=== PATIENT | male | born 1985 | race Caucasian/White ===

== ENCOUNTER 2023-05-26 16:08 | Emergency (ER) | payer OTHER, SELFPAY ==
[2023-05-26] VITALS (9 sets, daily range): BP systolic 130–149; BP diastolic 80–86; PULSE 64; RESP 18; TEMP 36.5; O2SAT 97–100
--- NOTE | ~2023-05-26 | CT_ITS ---
EXAMINATION: CT brain wo con, CT IAC/mastoids BI wo con DATE: 05/26/2023 17:51 INDICATION: Head injury TECHNIQUE: 1. Computed tomography (CT) of the head was performed without intravenous contrast. Sagittal and patrick nal reconstructions were performed. The mA was adjusted according to patient size. Iterative reconstr uction technique was employed. The dose-length product was 605.33 mGy-cm. 2. CT of the bilateral temporal bones/internal auditory canals/mastoids was performed without intrave nous contrast. Sagittal and coronal reconstructions were performed. Automated exposure control and it erative reconstruction technique were employed. The dose-length product was 348.5 mGy-cm. COMPARISON: None FINDINGS: No fracture. No acute intracranial hemorrhage, acute infarction or abnormal extra axial fluid collect ion. Ventricles are normal and symmetric. No mass/mass effect. The orbits, paranasal sinuses and mast oid air cells are normal. There is minimal amount of increased density along the reportedly ruptured right tympanic membrane likely representing hemorrhage related to the recent trauma. Normal symmetric appearance of the bilateral ossicular chains. Middle ear cavities remain clear. The bilateral cochle a and semicircular canals appear normal. IMPRESSION: 1. Minimal density likely representing hemorrhage along the reportedly ruptured right tympanic membra ne. No fracture or evident disruption of the ossicular chain. 2. Normal brain. No acute intracranial process. Reviewed, dictated and finalized at location A. IMPRESSION: 1. Minimal density likely representing hemorrhage along the reportedly ruptured right tympanic membrane. No fracture or evident disruption of the ossicular ch ain. 2. Normal brain. No acute intracranial process.
--- NOTE | ~2023-05-26 | XR_ITS ---
EXAMINATION: XR chest 2V DATE: 05/26/2023 17:37 INDICATION: Syncope TECHNIQUE: PA and lateral views of the chest were obtained. COMPARISON: None FINDINGS: The lungs are clear with no focal airspace opacities, pulmonary edema, pleural effusion or pneumothor ax. The cardiomediastinal silhouette is normal. Mild thoracic spondylosis with chronic appearing mild anterior wedging of a couple mid thoracic vertebral bodies. IMPRESSION: 1. No acute cardiopulmonary disease. Reviewed, dictated and finalized at location A.
--- NOTE | 2023-05-26 16:22 | PC.NURSE ---
Pt states around 1515 today while [place], he tripped and fell and a stick landed into his right ear. States that he has not been able to hear out of the ear since. Denies any bleeding or discharge from the ear.
--- NOTE | 2023-05-26 17:26 | ECG_ITS ---
Measurements Intervals [place] Rate: 47 P: 60 MS: 151 QRS: 83 QRSD: 83 T: 46 QT: 410 QTc: 365 Interpretive Statements SINUS BRADYCARDIA BASELINE WANDER- II, III, AVR, AVL, AVF, V3-V6 ABNORMAL ECG NO PREVIOUS ECG AVAILABLE FOR COMPARISON Electronically Signed On 05-26-2023 18:53:21 CDT by Keagan Bains D.O.
--- NOTE | 2023-05-26 17:37 | ED.EAR ---
HPI - Ear Problem General Chief complaint: Ear Stated complaint: decreased hearing and pain to right ear Time Seen by Provider: 05/26/23 17:16 Source: patient Mode of arrival: EMS Limitations: no limitations History of Present Illness HPI Narrative: This is a 37-year-old male that presents to the emergency department after a fall with an injury to the right ear. Reports [place] and [place]. He had a stick punctured his right ear. He was able to remove this stick. After he noticed some bloody discharge, pain, decreased hearing. He then started to feel tingling in his hands and feet and felt very lightheaded and nauseous. He passed out. He does report he lost consciousness. He denies any current visual changes, vomiting, or numbness. MD Complaint: ear pain and ear discharge Location: right ear Duration: constant Severity: moderate Relieving factors: nothing Context: Reports trauma Discharge from ear: Reports yes - bloody Associated symptoms ear: decreased hearing, headache and other (lightheadedness) Treatment prior to arrival: other (patient pulled stick out of ear) Related Data Allergies Allergy/AdvReac Type Severity Reaction Status Date / Time No Known Allergies Allergy Unverified 05/26/23 16:07 Review of Systems Review of Systems: CONSTITUTIONAL: Denies fever EYES: Denies visual changes CARDIOVASCULAR: Denies chest pain RESPIRATORY: Denies dyspnea. GASTROINTESTINAL: Reports nausea. Denies vomiting NEUROLOGIC: Reports headache. Denies numbness, or weakness. All systems reviewed & are unremarkable except as noted in HPI and below PMFSH Past Medical History Medical History (Updated 05/26/23 @ 18:51 by Shannan Chacko PA-C) No active medical problems Social History Social History Smoking status: Never smoker Alcohol intake: current Exam Narrative: GENERAL: Well-appearing, well-nourished, and in no acute distress. HEAD: Normocephalic, atraumatic. EYES: PERRLA and EOMI. ENT: Nares clear, no rhinorrhea or epistaxis. Mucous membranes moist. Oropharynx without tonsillar hypertrophy exudate or other lesions. Left TM pearly leal, non-bulging. Right TM with moderate size puncture. Small amount of bloody discharge in the right external auditory canal NECK: Supple. No adenopathy or masses. CHEST: No respiratory distress. HEART: Regular rate EXTREMITIES: Normal range of motion. No edema. SKIN: Warm, dry, no rash. NEURO: No focal deficits. Alert and oriented x3. Cranial nerves II through XII grossly intact. Normal finger-nose PSYCH: Normal mood and affect Course Course Emergency Course: Patient updated on work-up and agrees with plan of care Vital Signs Vital signs: Vital Signs Temperature 97.7 F 05/26/23 16:09 Pulse Rate 64 05/26/23 16:09 Respiratory Rate 18 05/26/23 16:09 Blood Pressure 141/80 H 05/26/23 16:09 Pulse Oximetry 98 05/26/23 16:09 Oxygen Delivery Room Air 05/26/23 16:09 Temperature 97.7 F 05/26/23 16:09 Pulse Rate 64 05/26/23 16:09 Respiratory Rate 18 05/26/23 16:09 Blood Pressure 149/85 H 05/26/23 18:46 Pulse Oximetry 97 05/26/23 18:46 Oxygen Delivery Room Air 05/26/23 16:09 Medical Decision Making MDM Narrative Medical decision making narrative: Patient presents to the emergency department after an injury to the right ear. Patient had foreign body in the right ear which he removed himself. After he noted bleeding and pain to the ear as well as decreased hearing. He is noted to have a moderate size defect in the right tympanic membrane. There are no obvious retained foreign bodies. He reported a syncopal episode following removing the stick from his ear. He is neurologically intact. His vitals are stable. No concerning changes on his EKG. CBC and metabolic panel without concerning findings. Chest x-ray without acute cardiopulmonary abnormality. CT scan of the brain and internal auditory rian
[2023-05-26] MEDS: SODIUM CHLORIDE 0.9% IV 500 ML 999 ML IV CONT (18:07)
[2023-05-26] MEDS: ACETAMINOPHEN 500 MG TABLET 1000 MG PO (18:08)
[2023-05-26] MEDS: ONDANSETRON INJ 4 MG/2 ML VIAL IV PUSH (18:09)
[2023-05-26 18:18] LABS: Basophils Absolute Auto 0.1 K/mm3 (0.0-0.1); Basophils Percent Auto 0.7 % (0.2-1.2); Eosinophils Absolute Auto 0.2 K/mm3 (0-0.3); Eosinophils Percent Auto 2.3 % (0-4.4); Hematocrit 42.9 % (42.0-52.0); Hemoglobin 14.5 g/dL (14.0-18.0); Immature Granulocyte Absolute 0.03 K/mm3 (0.00-0.031); Immature Granulocyte Percent A 0.3 % (0-0.5); Lymphocytes Absolute Auto 1.51 K/mm3 (0.9-3.2); Lymphocytes Percent Auto 16.4 % (18.3-44.2); Mean Corpuscular HGB Conc 33.8 g/dl (32-36); Mean Corpuscular Volume 88.6 fl (80-100); Mean Platelet Volume 10.5 fl (7.4-10.4); Monocytes Absolute Auto 0.8 K/mm3 (0.1-0.6); Monocytes Percent Auto 8.3 % (2.6-8.5); Neutrophils Absolute Auto 6.6 K/mm3 (1.3-6.7); Platelet Count Result 214 k/mm3 (150-375); Red Blood Count 4.84 M/mm3 (4.6-6.20); Red Cell Distribution Width 12.3 % (11.5-14.5); White Blood Count 9.2 K/mm3 (4.5-10.0)
[2023-05-26 18:37] LABS: Alanine Aminotransferase 23 U/L (6-50); Albumin Level 4.3 g/dL (3.5-5.1); Alkaline Phosphatase 74 U/L (38-126); Anion Gap 7 mmol/L (8-16); Aspartate Amino Transferase 35 U/L (17-59); Bilirubin,Total 0.4 mg/dL (0.2-1.3); Blood Urea Nitrogen 20 mg/dL (9-20); Calcium 9.1 mg/dL (8.4-10.2); Carbon Dioxide 27 mmol/L (22-30); Chloride 106 mmol/L (98-107); Estimated Glomerular Filt Rate > 60; Glucose 100 mg/dL (65-110); Sodium 140 mmol/L (137-145)
== END 2023-05-26 19:03 | disposition home or self-care (01) ==
PROVIDERS: Emergency Provider Physician Assistant
DX: S09.21XA Traumatic rupture of right ear drum, initial encounter (principal); S09.90XA Unspecified injury of head, initial encounter; R55 Syncope and collapse; W01.118A Fall on same level from slipping, tripping and stumbling with subsequent striking against other sharp object, initial encounter
CPT/HCPCS: 36415; 70450; 70480; 71046; 80053; 85025; 93005; 96361; 96374; 99284; A9270; J2405; J7040

== ENCOUNTER 2023-10-05 07:57 | Outpatient (CLI) | payer OTHER, SELFPAY | END 2023-10-05 07:58 | disposition home or self-care (01) | LOC: ANHAUDIO 07:57 | PROVIDERS: Visit Provider Otolaryngology | DX: H93.11 Tinnitus, right ear (principal); H91.91 Unspecified hearing loss, right ear | CPT/HCPCS: 92557; 92567 ==

== ENCOUNTER 2023-11-13 14:05 | Emergency (ER) | payer OTHER, SELFPAY ==
--- NOTE | 2023-11-13 14:14 | ED.URI ---
HPI - URI/Sore Throat General Chief Complaint: Upper Respiratory Infection Stated Complaint: ear pain,sorethroat Time Seen by Provider: 11/13/23 14:26 Source: patient and RN notes reviewed Mode of arrival: ambulatory Limitations: no limitations History of Present Illness HPI Narrative: 38-year-old male presents concern for ear pain, sore throat for several days. He reports headache, nasal congestion, fever. MD elicited complaint: sore throat Related Data Home Medications Medication Instructions Recorded Confirmed No Home Medications 11/13/23 11/13/23 Allergies Allergy/AdvReac Type Severity Reaction Status Date / Time No Known Allergies Allergy Verified 11/13/23 14:14 Review of Systems Review of Systems: CONSTITUTIONAL: Reports malaise, fever. EYES: Denies visual changes, redness, or discharge. ENT: Reports rhinorrhea, congestion, otalgia and sore throat. CARDIOVASCULAR: Denies chest pain, palpitations, or edema. RESPIRATORY: Reports cough. Denies dyspnea. GASTROINTESTINAL: Denies abdominal pain, nausea, vomiting, diarrhea SKIN: Denies rash or itching. MUSCULOSKELETAL: Reports myalgia. NEUROLOGIC: Reports headache. All systems reviewed & are unremarkable except as noted in HPI and below PMFSH Past Medical History Medical History (Updated 11/13/23 @ 14:33 by Janie Pederson NP) No active medical problems Family History Family History Mother Hypertension Grandparent Hypertension Cerebrovascular accident Grandparent Cerebrovascular accident Social History Social History Smoking status: Never smoker Alcohol intake: current Lack of Transportation: No Lack of Food: Never True Current Housing: I Have Housing Concerned About Future Housing: No Difficulty Paying Gas/Electric Bills: No Difficulty Paying for Meds: No Currently Unemployed: No Education: Bachelor's Degree Difficulty w/ Childcare or Family Care: No Comments At time of signature, agree with nursing past medical, surgical, social and family history. There is no relevant family history pertinent to the presenting complaint Exam Narrative: GENERAL: Well-appearing, well-nourished, and in no acute distress. HEAD: Normocephalic EYES: PERRLA, conjunctivae clear ENT: Nares clear. Mucous membranes moist. Right tM pearly leal with dull light reflex, left TM erythematous; no tragal tenderness. Oropharynx erythematous without lesions. Tonsils not enlarged and without exudate, no drooling, no hoarseness, no trismus, uvula midline. NECK: Supple. No lymphadenopathy CHEST: Clear to auscultation, breath sounds equal. No wheezing, rhonchi, rales, or stridor. No respiratory distress, speaks in full sentences. HEART: Regular rate and rhythm. No murmur heard. SKIN: Warm, dry, no rash. NEURO: Alert and oriented x3. PSYCH: Normal mood and affect Course Course Emergency Course: Patient is aware of diagnosis, understands and agrees to treatment plan. Anticipatory guidance given. Patient agrees to follow-up as directed and is aware of reasons to seek care at the emergency department. Portions of this record may have been created with voice recognition software Level of Care: Express Care Visit Vital Signs Vital signs: Reviewed. MDM - URI/Sore Throat MDM Narrative Medical decision making narrative: Differential diagnosis considered: Cai virus, strep pharyngitis, allergic rhinitis, upper respiratory tract infection, sinusitis, rhinosinusitis, nasopharyngitis. viral pharyngitis, otitis media, otitis externa, pneumonia, bronchitis, viral cough syndrome, viral syndrome, and influenza. Exam findings show no acute concerns or changes; patient is non-toxic appearing and is in no distress. Patient is appropriate for outpatient treatment and follow-up. Lab Data Attestation: I reviewed the patient's lab results.
[2023-11-13 14:18] VITALS: BP 134/84; PULSE 62; RESP 16; TEMP 36.4; O2SAT 100
== END 2023-11-13 14:36 | disposition home or self-care (01) ==
PROVIDERS: Emergency Provider Nurse Practitioner
DX: J02.0 Streptococcal pharyngitis (principal)
CPT/HCPCS: 99211; G0463

== ENCOUNTER 2024-03-25 08:21 | Emergency (ER) | payer OTHER, SELFPAY ==
[2024-03-25 08:42] VITALS: BP 109/71; PULSE 52; RESP 16; TEMP 36.6; O2SAT 100
--- NOTE | 2024-03-25 09:21 | ED.LOWEXIN ---
HPI - Extremity Injury (Lower) General Chief Complaint: Extremity Injury, Lower Stated Complaint: rt calf pain History of Present Illness HPI Narrative: Pt is a 38 y/o male, presents to with right calf pain, acute onset yesterday while running. He notes he felt a pop in the mid calf and has had focal pain there since with weight bearing. He is able to plantar flex and dorsiflex the right foot but with increased pain. He has no hx of previous injury to this limb. He has no other complaints. Related Data Home Medications Medication Instructions Recorded Confirmed No Home Medications 03/25/24 03/25/24 Allergies Allergy/AdvReac Type Severity Reaction Status Date / Time No Known Allergies Allergy Verified 03/25/24 08:50 Review of Systems Musculoskeletal: Comments: refer to [facility] Past Medical History Medical History No active medical problems Family History Family History Mother Hypertension Grandparent Hypertension Cerebrovascular accident Grandparent Cerebrovascular accident Social History Social History Smoking status: Never smoker Alcohol intake: current Lack of Transportation: No Lack of Food: Never True Current Housing: I Have Housing Concerned About Future Housing: No Difficulty Paying Gas/Electric Bills: No Difficulty Paying for Meds: No Currently Unemployed: No Education: Bachelor's Degree Difficulty w/ Childcare or Family Care: No Exam Const: General: healthy appearing, no acute distress and alert Nutritional Appearance: well nourished Orientation/consciousness: patient oriented x3 Limitations: no limitations HENMT: Head: normal to inspection Eyes: Conjunctivae: conjunctivae normal Pupils: Equal, round and reactive pupils present Neck: Neck: normal visual inspection Resp: Effort & Inspection: normal respiratory effort Cardio: Rate: regular rate Rhythm: regular rhythm Skin: General skin exam: normal color Rashes: no rashes Neuro: General: patient oriented x3, moves all extremities and no meningeal signs Cranial nerves: Yes Nystagmus not present Extrem: Other: pt has swelling to the right calf, he is focally TTP over the mid calf, the achilles tendon is palpable at the calcaneus/intact. Distal PMS Intact. He is able to plantar and dorsiflex against resistance but with increased pain. Course Course Level of Care: Express Care Visit ([id number]) Vital Signs Vital signs: Vital Signs Temperature 36.6 C 03/25/24 08:42 Pulse Rate 52 L 03/25/24 08:42 Respiratory Rate 16 03/25/24 08:42 Blood Pressure 109/71 03/25/24 08:42 Pulse Oximetry 100 03/25/24 08:42 Oxygen Delivery Room Air 03/25/24 08:42 Temperature 36.6 C 03/25/24 08:42 Pulse Rate 52 L 03/25/24 08:42 Respiratory Rate 16 03/25/24 08:42 Blood Pressure 109/71 03/25/24 08:42 Pulse Oximetry 100 03/25/24 08:42 Oxygen Delivery Room Air 03/25/24 08:42 MDM - Extremity Injury (Lower) MDM Narrative Medical decision making narrative: Dr Frederick, travel professional ortho is contacted regarding an appointment and evaluation of this patient, as plain film imaging available here is unlikely to provide diagnostic information. He accepts the patient for treatment and asks that he is sent directly to his office for evaluation. Pt will drive directly there Discharge Plan Discharge Clinical Impression: Injury of calf Patient Disposition: Home, Self-Care Condition: Stable Instructions: Antibiotic Form Additional Instructions: GO DIRECTLY TO DR FREDERICK'S OFFICE, HE IS AWAITING YOU NOW. THEIR OFFICE PHONE NUMBER IS [phone], THE OFFICE IS LOCATED AT [address] [place] [address], [phone] Prescriptions: No Action No Home Medications Follow-up/Referrals
== END 2024-03-25 09:34 | disposition home or self-care (01) ==
PROVIDERS: Emergency Provider Nurse Practitioner Family; PCP Hospitalist
DX: S89.91XA Unspecified injury of right lower leg, initial encounter (principal); X50.3XXA Overexertion from repetitive movements, initial encounter; Y93.02 Activity, running
CPT/HCPCS: 99212; G0463

== ENCOUNTER 2025-01-01 15:50 | Emergency (ER) | payer OTHER, SELFPAY ==
--- OUTSIDE RECORDS SUMMARY | 2025-01-01 15:52 | XMS_ITS | Referral Summary ---
Author Organization [facility] Address [address] [place] [address] Care Team Providers Care Senior Escrow Officer Name Role Phone Woody Felix MD, Cain Qureshi Primary Care Provide r Encounters Date Type Department Care Team Description 12/30/2024 3:00 PM TIER LIFT TRUCK OPERATOR Office Visit [facility] Primary Care [address] [place] [phone] Cain Mckay Jr., MD Preventative health care (Primary Dx); Seasonal allergies from Last 3 Months Allergies No known active allergies Medications cetirizine (ZyrTEC) 10 mg tablet Take 1 tablet (10 mg total) by mouth daily Active fluticasone propionate (FLONASE) 50 mcg/actuation nasal spray Administer 2 sprays into each nostril daily 4 Active traZODone (DESYREL) 50 mg tabletIndicatio ns:Primary insomnia TAKE 1 TABLET(50 MG) BY MOUTH EVERY NIGHT NEEDED FOR SLEEP 90 tablet 4 Active dupilumab (Dupixent Pen) pen injectorIndicat ions:Seasonal allergies Inject 2 mL (300 mg total) under the skin every 14 (fourteen) days 12 mL 3 5 12/30/19 26 Active Active Problems Problem Noted Date Diagnosed Date Preventative health care 12/17/2023 Assessment & Plan (12/30/2024 3:35 PM TIER LIFT TRUCK OPERATOR): Reviewed labs, screenings and vaccines Assessment & Plan (12/17/2023 9:01 AM TIER LIFT TRUCK OPERATOR): Reviewed labs, screenings and vaccines Primary insomnia 12/17/2023 Assessment & Plan (12/17/2023 9:10 AM TIER LIFT TRUCK OPERATOR): He think if he could turn off the brain at night to sleep it would help Discussed options and he agreed he did not want to do anythign like ambien etc Discussed trazodone, risk./benefits He can take up to 100 mg prn Overweight with body mass in dex (BMI) of 29 to 29.9 in adult 06/16/2019 Assessment & Plan (12/17/2023 9:10 AM TIER LIFT TRUCK OPERATOR): Will monitor weight Internal derangement of right knee 12/25/2018 Mononeuropathy 07/22/2018 Immunizations Name Administration Dates Next Due DTaP, Unspecified 09/12/1989, 6,04/16/1985,01/29,1984 H1N1 All Forms 11/30/2009 H1N1 Inj 11/30/2009 Hep A / Hep B 03/17/2008,10/18/2007,09/18/2007 Hep B, Unspecified 11/04/1997,06/03/1997, 997 IPV 09/18/2007 Influenza LAIV (Nasal) 07/12/2013,07/16/2012 Influenza, Quadrivalent, Krista l Culture-based MDCK, Preservative Free, Antibiotic Free, Intramuscular 11/16/2019 Influenza, Quadrivalent, Spl it, Intramuscular 10/19/2008,09/18/2007 Influenza, Quadrivalent, Spl it, Preservative Free, Intramuscular 07/07/2022,09/19/2021,2020,09/21,2017,10/01/2015 Influenza, Split 10/19/2008,09/18/2007 Influenza, Trivalent, Cell Culture-based MDCK, Preservative Free, Antibiotic Free, Intramuscular 11/16/2019 Influenza, Trivalent, IM (MDV) 08/26/2014,2010 Influenza, Trivalent, Preser vative Free, Intramuscular 07/31/2024,09/13/2017,09/23/2016,09/08 Influenza, Unspecified 09/22/2023,10/17/2018, Influenza, Whole 08/09/2010,08/30/2009, 7 MMR 01/16/2019, 7,04/28/1992,01/14 Meningococcal Polysaccharide (Menomune) 09/18/2007 OPV 09/12/1989, 6,01/29/1985,11/30 Smallpox 10/18/2007 Td, Unspecified 03/15/1999 Tdap 02/02/2016,10/18/2007 Typhoid Inactivated 09/13/2017 Yellow Fever 10/18/2007 Social History Tobacco Use Types Packs/Day Years Used Date Smoking Tobacco: Never Tobacco Cessation:Counseling Given: Not Answered Alcohol Use Standard Drinks/Week Comments Yes 0 (1 standard drink = 0.6 oz pur e alcohol) 2 glass wine AUDIT-C Answer Date Recorded Q1: How often do you have a drink containing alc ohol? 2-3 times a week 12/17/2023 Q2: How many drinks containi ng alcohol do you have on a typical day when you are drinking? 1 or 2 12/17/2023 Q3: How often do you have si x or more drinks on one occasion? Never 12/17/2023 PHQ-2 Answer Date Recorded PHQ-2 Total Score (If total score is 3 or more points, staff should administer the PHQ-9) 2 12/30/2024 Sex and Gender Information Value Date Recorded Sex Assigned at Not on file Legal Sex Male 8:40 PM TIER LIFT TRUCK OPERATOR Gender Identity Not on file Sexual Orientation Not on file Last Filed Vital Signs Vital Sign Reading Time Taken Comments Blood Pressure 100/60 12/30/2024 2:59 PM TIER LIFT TRUCK OPERATOR Pulse 79 12/30/2024 2:59 PM TIER LIFT TRUCK OPERATOR Temperature 36.6 C (97.8 F) 12/30/2024 2:59 PM TIER LIFT TRUCK OPERATOR Respiratory Rate 18 12/17/2023 8:37 AM TIER LIFT TRUCK OPERATOR Oxygen Saturation 98% 12/30/2024 2:59 PM TIER LIFT TRUCK OPERATOR Inhaled Oxygen Concentration - - Weight 104.8 kg (231 lb) 12/30/2024 2:59 PM TIER LIFT TRUCK OPERATOR Height 188 cm (6' 2.02 ) 12/30/2024 2:59 PM TIER LIFT TRUCK OPERATOR Body Mass Index 29.65 12/30/2024 2:59 PM TIER LIFT TRUCK OPERATOR Plan of Treatment Not on file Insurance [facility] CLAIMS [facility] CLAIMS Care Teams Senior Escrow Officer Relationship Specialty Start Date End Date Cain Mckay Jr., MD [address] [place] [id number] PCP - General Internal Medicine 03/07/21
--- OUTSIDE RECORDS SUMMARY | 2025-01-01 15:52 | XMS_ITS | Clinical Summary ---
Author Organization [facility] at [facility] Address [address] [place] [address] Care Team Providers Care Farmworker [employer] Name Role Phone Woody Felix MD, Cain Qureshi Primary Care Provide r Allergies No known active allergies Medications cetirizine [...] 12/17/2023 Assessment & Plan (12/30/2024 3:35 PM PRIMARY TEACHER): Reviewed labs, screenings and vaccines Assessment & Plan (12/17/2023 9:01 AM PRIMARY TEACHER): Reviewed labs, screenings and vaccines Primary insomnia 12/17/2023 Assessment & Plan (12/17/2023 9:10 AM PRIMARY TEACHER): He think if he could turn off the brain at night to sleep it would help Discussed options and he agreed he did not want to do anythign like ambien etc Discussed trazodone, risk./benefits He can take up to 100 mg prn Overweight with body mass in dex (BMI) of 29 to 29.9 in adult 06/16/2019 Assessment & Plan (12/17/2023 9:10 AM PRIMARY TEACHER): Will monitor weight Internal derangement of right knee 12/25/2018 Mononeuropathy 07/22/2018 Encounters Date Type Department Care Team Description 12/30/2024 3:00 PM PRIMARY TEACHER Office Visit [facility] Primary Care [address] [place] [phone] Cain Mckay Jr., MD Preventative health care (Primary Dx); Seasonal allergies from Last 3 Months Immunizations Name Administration Dates Next Due DTaP, [...] 02/02/2016,10/18/2007 Typhoid Inactivated 09/13/2017 Yellow Fever 10/18/2007 Family History Relation Name Status Comments Father Alive Mother Alive Social History Tobacco Use Types Packs/Day Years [...] on file Legal Sex Male 8:40 PM PRIMARY TEACHER Gender Identity Not on file Sexual Orientation Not on file Obstetrics History Last Filed Vital Signs Vital Sign Reading Time Taken Comments Blood Pressure 100/60 12/30/2024 2:59 PM PRIMARY TEACHER Pulse 79 12/30/2024 2:59 PM PRIMARY TEACHER Temperature 36.6 C (97.8 F) 12/30/2024 2:59 PM PRIMARY TEACHER Respiratory Rate 18 12/17/2023 8:37 AM PRIMARY TEACHER Oxygen Saturation 98% 12/30/2024 2:59 PM PRIMARY TEACHER Inhaled Oxygen Concentration - - Weight 104.8 kg (231 lb) 12/30/2024 2:59 PM PRIMARY TEACHER Height 188 cm (6' 2.02 ) 12/30/2024 2:59 PM PRIMARY TEACHER Body Mass Index 29.65 12/30/2024 2:59 PM PRIMARY TEACHER Plan of Treatment Health Maintenance Due Date Last Done Comments Hepatitis C Screening 1985 Covid-19 Vaccine (2023- season) 2024 03/10/2021, 02/17/2021 Depression Screening 12/30/2025 12/30/2024, 12/30/2024, 01/23/2024, Additional history exists Regular Well Visit/Exam 18-64 12/30/2025 12/30/2024, 12/17/2023 DTaP/Tdap/Td Vaccine (8 - Td or Tdap) 02/01/2026 02/02/2016, 10/18/2007, 03/15/1999, Additional history exists Influenza Vaccine Completed 07/31/2024, , 07/07/2022, Additional history exists HPV Vaccines Aged Out No longer eligi ble based on patient's age to complete this topic Pneumococcal vaccine <65 Aged Out No longer eligible based on patient's age to complete this topic Varicella Vaccines Discontinued Insurance [facility] CLAIMS [facility] CLAIMS Care Teams Farmworker [employer] Relationship Specialty Start Date End Date Cain Mckay Jr., MD [address] [place] [id number] PCP - General Internal Medicine 03/07/21
--- OUTSIDE RECORDS SUMMARY | 2025-01-01 15:52 | XMS_ITS | Patient Health Summary ---
Author Organization [facility] Address [address] [place] [address] Care Team Providers Care Experiential Therapist Name Role Phone None, Physician Primary Care Provider Unavailabl e Note from [facility],non-owned Affiliates and Associated Physician Practices is amultiple site organization consisting of ambulatory clinics and hospital sitesin [place], [place], [place] and [place]. This disclosure is being madepursuant to the Care Everywhere program and may not contain all information available regarding this patient. Last updated 18.[facility] Allergies No known active allergies Medications * Be aware that medications may not be up to date on this document. Alwaysverify current medications with the patient. * acetaminophen (Tylenol) 325 MG tablet(Started 05/30/2023) Take 1 (one) tablet by mouth as needed * ibuprofen (Motrin) 800 MG tablet(Started 05/30/2023) Take 1 (one) tablet by mouth as needed * ofloxacin (Floxin) 0.3 % otic solution(Started 07/04/2023) Instill 5 (five) drops into right ear 3 times daily * fluticasone propionate (Flonase) 50 MCG/ACT nasal spray(Started 11/28/2023) [place] 2 (two) sprays into each nostril once daily 4 refills by 11/27/2024 Active Problems No known active problems Immunizations * INFLUENZA VACCINE, TRIV. (AFLURIA, FLUZONE TRIVALENT; 6MO+) (IIV3)(Given 08/26/2014, 10/26/2011) * DTAP, HISTORIC VACCINE(Given 09/12/1989, 04/15/1986, 04/16/1985, 01/29/1985, 1984) * FLU VACCINE TRI IIV3 SPLIT PF IM (FLUVIRIN)(Given 09/13/2017, 09/23/2016, 09/08/2014) * HEP A/HEP B(Given 03/17/2008, 10/18/2007, 09/18/2007) * HEP B VACCINE(Given 11/04/1997, 06/03/1997, 05/01/1997) * INFLUENZA A K0J7-11 VACCINE(Given 11/30/2009) * INFLUENZA VACCINE(Given 10/17/2018, 07/16/2012, 08/09/2010, 08/30/2009, 09/18/2007) * INFLUENZA VACCINE, CELL CULTURE, QUADR. (FLUCELVAX QUADRIVALENT; 6MO+) (CCIIV4)(Given 11/16/2019) * INFLUENZA VACCINE, QUADR. (AFLURIA, FLUZONE QUADRIVALENT; 6MO+) (IIV4)(Given 10/19/2008, 09/18/2007) * INFLUENZA VACCINE, QUADR. (FLUZONE; FLULAVAL; FLUARIX; AFLURIA QUADRIVALENT; 6MO+), 0.5 ML (IIV4)(Given 09/19/2021, 2020, 09/21/2018, 2017, 10/01/2015) * HORACE VACCINE QUAD LAIV4 PF NASAL(Given 07/12/2013) * MENINGOCOCAL MENINGITIS(Given 09/18/2007) * MMR(Given 01/16/2019, 10/18/2007, 04/28/1992, 01/14/1986) * POLIO IPV(Given 09/18/2007) * POLIO OPV(Given 09/12/1989, 04/15/1986, 01/29/1985, 1984) * SMALLPOX (VACCINIA) VACCINE, LIVE(Given 10/18/2007) * TD VACCINE(Given 03/15/1999) * TDAP (7yrs+)(Given 02/02/2016, 02/02/2016, 10/18/2007) * TYPHOID IM(Given 09/13/2017) * YELLOW FEVER(Given 10/18/2007) Social History Tobacco Use Types Packs/Day Years Used Date Smoking Tobacco: Never Smokeless Tobacco: Never Tobacco Cessation:Counseling Given: Not Answered Alcohol Use Standard Drinks/Week Comments Yes 3 (1 standard drink = 0.6 oz pur e alcohol) Sex and Gender Information Value Date Recorded Sex Assigned at Not on file Gender Identity Not on file Sexual Orientation Not on file Last Filed Vital Signs Vital Sign Reading Time Taken Comments Blood Pressure 125/80 11/28/2023 1:08 PM TRIPLE AIR VALVE TESTER Pulse 76 11/28/2023 1:08 PM TRIPLE AIR VALVE TESTER Temperature - - Respiratory Rate - - Oxygen Saturation - - Inhaled Oxygen Concentration - - Weight 106.1 kg (234 lb) 11/28/2023 1:08 PM TRIPLE AIR VALVE TESTER Height 188 cm (6' 2 ) 11/28/2023 1:08 PM TRIPLE AIR VALVE TESTER Body Mass Index 30.04 11/28/2023 1:08 PM TRIPLE AIR VALVE TESTER Procedures * MRI BRAIN WWO CONTRAST(Performed 11/28/2023) Performed for Migraine variant with headache, H/O perforation of tympanic membrane, Right ear pain,Tinnitus of right ear * CREATININE - POCT INTERFACED(Performed 11/28/2023) * WA EAR MICROSCOPY EXAMINATION(Performed 11/09/2023) Performed for H/O perforation of tympanic membrane, Right ear pain, Tinnitus of right ear Results * MRI BRAIN WWO CONTRAST (11/28/2023 7:18 AM TRIPLE AIR VALVE TESTER) Anatomical Region Laterality Modality Head Magnetic Resonan ce 11/28/2023 1:10 PM TRIPLE AIR VALVE TESTER Impressions 11/28/2023 4:25 PM TRIPLE AIR VALVE TESTER IMPRESSION: 1.No mass or abnormal enhancement along the course of the 7th and 8th cranial nerves bilaterally. 2.No evidence of acute intracranial findings or abnormal enhancement. 3.Pansinus sinus disease as outlined. Clinical correlation is recommended. > Interpreting Provider: Ashley Rosas MD on 11/28/2023 4:25 PM Narrative 11/28/2023 4:25 PM TRIPLE AIR VALVE TESTER PROCEDURE: MRI BRAIN WWO CONTRAST, DATE/TIME OF EXAM: 11/28/2023 7:18 AM, LOCATION [facility] INDICATION: G43.809: Migraine variant with headache Z86.69: H/O perforation of tympanic membrane H92.01: Right ear pain H93.11: Tinnitus of right ear ADDITIONAL CLINICAL INFORMATION: Ordering Provider Reason For Exam: R/O central and/or retrocochlear pathologies contributing to ongoing right sided tinnitus and new onset headaches with migrainous features Technologist Note: None. Additional: None. EXAMINATION: Magnetic resonance imaging (MRI) of the brain without and with contrast CONTRAST: GADOBUTROL 1 MMOL/ML IV SSM SO:10 mL TECHNIQUE: MRI of the brain was performed prior to and following the uneventful administration of 10 mL intravenous GADAVIST contrast according to a dedicated internal auditory canal (IAC) protocol. This included detailed coronal and axial imaging through the intracranial course of cranial nerves five through eight. COMPARISON: No prior study is available for comparison at the time of this dictation. FINDINGS: Suspected small vessel running adjacent to the right (series 10, image 29), adjacent to the vestibular cochlear nerves but no evidence of compression. A small vessel bones near the root exit zone of the left trigeminal nerve, without compression. The cerebellopontine angles and internal auditory canals appear normal. No enhancing lesions are identified along the course of the cranial nerve 7/8 complexes. The signal within the bony labyrinth appears normal on both sides. Suspected opacification of a few mastoid air cells bilaterally. The remaining mastoid air cells appear grossly clear. No evidence of acute or chronic hemorrhage is identified. No evidence of acute cerebral infarction is seen. The ventricles are of normal size, shape, and morphology. No mass effect or midline shift is seen. Trace periventricular and rare subcortical white matter FLAIR hyperintensities likely represent sequelae of chronic small vessel ischemic disease. No enhancing lesions are identified. The sella appears grossly unremarkable when visualized on the coronal postcontrast T1-weighted images. The posterior fossa, brainstem, and craniocervical junction appear grossly unremarkable. The visualized portions of the orbits appear grossly unremarkable. Pansinus disease is noted with polypoid mucosal thickening in the maxillary sinuses with near complete opacification of the right maxillary sinus. Partial opacification of the ethmoid air cells bilaterally. Mild to moderate mucosal thickening in the sphenoid sinuses and mild mucosal thickening in the frontal sinuses. Normal flow voids are demonstrated in the carotid arteries and basilar artery. Procedure Note Ashley Rosas MD - 11/28/2023 PROCEDURE: MRI BRAIN WWO CONTRAST, DATE/TIME OF EXAM: 11/28/2023 7:18AM, LOCATION [facility] INDICATION: G43.809: Migraine variant with headache Z86.69: H/O perforation of tympanic membrane H92.01: Right ear pain H93.11: Tinnitus of right ear ADDITIONAL CLINICAL INFORMATION: Ordering Provider Reason For Exam: R/O central and/or retrocochlear pathologies contributing to ongoing right sided tinnitus and new onset headaches with migrainous features Technologist Note: None. Additional: None. EXAMINATION: Magnetic resonance imaging (MRI) of the brain without andwith contrast CONTRAST: GADOBUTROL 1 MMOL/ML IV SSM SO:10 mL TECHNIQUE: MRI of the brain was performed prior to and following the uneventful administration of 10 mL intravenous GADAVIST contrastaccording to a dedicated internal auditory canal (IAC) protocol. This included detailed coronal and axial imaging through the intracranial course of cranial nerves five through eight. COMPARISON: No prior study is available for comparison at the time ofthis dictation. FINDINGS: Suspected small vessel running adjacent to the right (series 10, image29), adjacent to the vestibular cochlear nerves but no evidence ofcompression. A small vessel bones near the root exit zone of the left trigeminalnerve, without compression. The cerebellopontine angles and internal auditory canals appear normal. No enhancing lesions are identified along thecourse of the cranial nerve 7/8 complexes. The signal within the bony labyrinth appears normal on both sides. Suspected opacification of a few mastoidair cells bilaterally. The remaining mastoid air cells appear grossly clear. No evidence of acute or chronic hemorrhage is identified. No evidence of acute cerebral infarction is seen. The ventricles are of normal size, shape, and morphology. No mass effect or midline shift is seen. Trace periventricular and rare subcortical white matter FLAIR hyperintensities likely represent sequelae of chronic small vessel ischemic disease. No enhancing lesions are identified. The sella appears grossly unremarkable when visualized on the coronal postcontrast T1-weighted images. The posterior fossa, brainstem, and craniocervical junction appear grossly unremarkable. The visualized portions of the orbits appear grossly unremarkable. Pansinus disease is noted with polypoid mucosal thickening in themaxillary sinuses with near complete opacification of the right maxillary sinus. Partial opacification of the ethmoid air cells bilaterally. Mild to moderate mucosal thickening in the sphenoid sinuses and mild mucosal thickening in the frontal sinuses. Normal flow voids are demonstrated in the carotid arteries and basilar artery. IMPRESSION: 1.No mass or abnormal enhancement along the course of the 7th and 8th cranial nerves bilaterally. 2.No evidence of acute intracranial findings or abnormal enhancement. 3.Pansinus sinus disease as outlined. Clinical correlation is recommended. > Interpreting Provider: Aslhey Rosas MD on 11/28/2023 4:25 PM Raf ARAYA MR ORDERAB LES * CREATININE - POCT INTERFACED (11/28/2023 6:31 AM TRIPLE AIR VALVE TESTER) Creatinine POCT 0.62 0.30 - 1.30 mg/dL 11/28/2023 6:33 AM TRIPLE AIR VALVE TESTER [facility] eGFR >90 >90 mL/min/1.7 3 m2 11/28/2023 6:33 AM TRIPLE AIR VALVE TESTER [facility] Blood BLOOD SPECIMEN / Unknown 11/28/2023 6:31 AM TRIPLE AIR VALVE TESTER 11/28/2023 6:33 AM TRIPLE AIR VALVE TESTER Raf ARAYA LAB - POIN T OF CARE ORDERABLES [facility] [address] [place] [id number], [facility] [phone] * WA EAR MICROSCOPY EXAMINATION (11/09/2023 4:41 PM TRIPLE AIR VALVE TESTER) Narrative Raf Zepeda APRN-CNP - 11/09/2023 4:41 PM TRIPLE AIR VALVE TESTER Raf Zepeda APRN-CNP 11/09/2023 4:44 PM Procedure: Microscopic exam of the ear(s) Findings: See main note. Procedure in detail: The binocular operating microscope and and ear speculum were used to exam the ear(s). The patient tolerated the procedure well and there was no bleeding. QUIANA Cruz Raf ARAYA PROCEDURE/ MINOR SURGICAL ORDERABLES Care Teams Experiential Therapist Relationship Specialty Start Date End Date None, Physician [address] [place] [address] PCP - General 11/08/23
--- OUTSIDE RECORDS SUMMARY | 2025-01-01 15:52 | XMS_ITS | Referral Summary ---
Author Organization [facility] Address [address] [place] [address] Care Team Providers Care Scientific Laboratory Supervisor Name Role Phone None, Physician Primary Care Provider Unavailabl e Source Comments [facility],non-owned Affiliates and Associated Physician Practices is amultiple site organization consisting of ambulatory clinics and hospital sitesin [place], [place], [place] and [place]. This disclosure is being madepursuant to the Care Everywhere program and may not contain all information available regarding this patient. Last updated 18.[facility] [employer] Allergies No known active allergies Medications * Be aware that medications may not be up to date on this document. Alwaysverify current medications with the patient. Medication Sig Dispensed Refills Start Date End Date Status acetaminophen (Tylenol) 325 MG tablet Take 1 (one) tablet by mouth as needed 05/30/2023 Active ibuprofen (Motrin) 800 MG tablet Take 1 (one) tablet by mouth as needed 05/30/2023 Active ofloxacin (Floxin) 0.3 % otic solution Instill 5 (five) drops into right ear 3 times daily 07/04/2023 Active fluticasone propionate (Flonase) 50 MCG/ACT nasal spray [place] 2 (two) sprays into each nostril once daily 48 g 4 11/28/2023 Active Active Problems No known active problems Immunizations Name Administration Dates Next Due INFLUENZA VACCINE, TRIV. (AF LURIA, FLUZONE TRIVALENT; 6MO+) (IIV3) 08/26/2014,10/26/2011 DTAP, HISTORIC VACCINE 09/12/1989,1985,04/16/1985,1984,1984 FLU VACCINE TRI IIV3 SPLIT P F IM (FLUVIRIN) 09/13/2017,09/23/2016,09/08/2014 HEP A/HEP B 03/17/2008,10/18/2007,09/18/2007 HEP B VACCINE 11/04/1997,06/03/1997,05/01/1997 INFLUENZA A D4X0-36 VACCINE 11/30/2009 INFLUENZA VACCINE 10/17/2018, 2,08/09/2010,2008,09/18/2007 INFLUENZA VACCINE, CELL CULT URE, QUADR. (FLUCELVAX QUADRIVALENT; 6MO+) (CCIIV4) 11/16/2019 INFLUENZA VACCINE, QUADR. (A FLURIA, FLUZONE QUADRIVALENT; 6MO+) (IIV4) 10/19/2008,09/18/2007 INFLUENZA VACCINE, QUADR. (F LUZONE; FLULAVAL; FLUARIX; AFLURIA QUADRIVALENT; 6MO+), 0.5 ML (IIV4) 09/19/2021,2020,09/21/2018,2016,10/01/2015 HORACE VACCINE QUAD LAIV4 PF NASAL 07/12/2013 MENINGOCOCAL MENINGITIS 09/18/2007 MMR 01/16/2019, 7,04/28/1992,1985 POLIO IPV 09/18/2007 POLIO OPV 09/12/1989, 6,01/29/1985,1984 SMALLPOX (VACCINIA) VACCINE, LIVE 10/18/2007 TD VACCINE 03/15/1999 TDAP (7yrs+) 02/02/2016,02/02/2016,10/18/2007 TYPHOID IM 09/13/2017 YELLOW FEVER 10/18/2007 Social History Tobacco Use Types Packs/Day [...] Comments Blood Pressure 125/80 11/28/2023 1:08 PM SHOE TURNER Pulse 76 11/28/2023 1:08 PM SHOE TURNER Temperature - - Respiratory Rate - - Oxygen Saturation - - Inhaled Oxygen Concentration - - Weight 106.1 kg (234 lb) 11/28/2023 1:08 PM SHOE TURNER Height 188 cm (6' 2 ) 11/28/2023 1:08 PM SHOE TURNER Body Mass Index 30.04 11/28/2023 1:08 PM SHOE TURNER Plan of Treatment Not on file Care Teams Scientific Laboratory Supervisor Relationship Specialty Start Date End Date None, Physician [address] [place] [address] PCP - General 11/08/23
--- OUTSIDE RECORDS SUMMARY | 2025-01-01 15:52 | XMS_ITS | Clinical Summary ---
Author Organization [facility] Address [address] [place] [address] Care Team Providers Care School Speech Therapist Name Role Phone None, Physician Primary Care Provider Unavailabl e Source Comments [facility],non-owned Affiliates and Associated Physician Practices is amultiple site organization consisting of ambulatory clinics and hospital sitesin [place], [place], [place] and [place]. This disclosure is being madepursuant to the Care Everywhere program and may not contain all information available regarding this patient. Last updated 18.[facility] [employer] Allergies No known active allergies Medications * [...] fluticasone propionate (Flonase) 50 MCG/ACT nasal spray [place] 2 (two) sprays into each nostril once daily 48 g 4 11/28/2023 Active Active Problems No known active problems Immunizations Name Administration Dates Next Due INFLUENZA VACCINE, TRIV. (AF LURIA, FLUZONE TRIVALENT; 6MO+) (IIV3) 08/26/2014,10/26/2011 DTAP, HISTORIC VACCINE 09/12/1989,1985,04/16/1985,1984,1984 FLU VACCINE TRI IIV3 SPLIT P F IM (FLUVIRIN) 09/13/2017,09/23/2016,09/08/2014 HEP A/HEP B 03/17/2008,10/18/2007,09/18/2007 HEP B VACCINE 11/04/1997,06/03/1997,05/01/1997 INFLUENZA A S8Y0-10 VACCINE 11/30/2009 INFLUENZA VACCINE 10/17/2018, 2,08/09/2010,2008,09/18/2007 INFLUENZA [...] Comments Blood Pressure 125/80 11/28/2023 1:08 PM LASER MACHINE OPERATOR Pulse 76 11/28/2023 1:08 PM LASER MACHINE OPERATOR Temperature - - Respiratory Rate - - Oxygen Saturation - - Inhaled Oxygen Concentration - - Weight 106.1 kg (234 lb) 11/28/2023 1:08 PM LASER MACHINE OPERATOR Height 188 cm (6' 2 ) 11/28/2023 1:08 PM LASER MACHINE OPERATOR Body Mass Index 30.04 11/28/2023 1:08 PM LASER MACHINE OPERATOR Plan of Treatment Health Maintenance Due Date Last Done Comments LIPID TESTING 1984 HIV SCREENING 1999 HEPATITIS C SCREENING 09/21/2002 COVID-19 VACCINE ( season) 2024 03/10/2021, 02/17/2021 INFLUENZA VACCINE (#1) 2024 , 2020, 11/16/2019, Additional history exists DEPRESSION SCREENING 11/26/2024 DTAP/TDAP/TD VACCINES (10 - Td or Tdap) 02/01/2026 02/02/2016, 02/02/2016, 10/18/2007, Additional history exists ZOSTER VACCINE (1 of 2) 2034 MENINGOCOCCAL VACCINE Aged Out 09/18/2007 No elizabeth alona eligible based on patient's age to complete this topic HEPATITIS B VACCINE Completed 03/17/2008, 10/18/2007, 09/18/2007, Additional history exists HIB VACCINE Aged Out No longer eligi ble based on patient's age to complete this topic HPV VACCINE Aged Out No longer eligi ble based on patient's age to complete this topic MENINGOCOCCAL (Group B) VACCINE Aged Out No longer eligible based on patient's age to complete this topic PNEUMOCOCCAL VACCINE Aged Out No long er eligible based on patient's age to complete this topic Care Teams School Speech Therapist Relationship Specialty Start Date End Date None, Physician [address] [place] [address] PCP - General 11/08/23
--- NOTE | 2025-01-01 15:54 | ED.URI ---
HPI - URI/Sore Throat General Chief Complaint: Upper Respiratory Infection Stated Complaint: sore throat Time Seen by Provider: 01/01/25 15:50 Source: patient Mode of arrival: ambulatory Limitations: no limitations History of Present Illness HPI Narrative: Patient is a 39-year-old male who presents with 2 days of fatigue, diarrhea, sore throat, headache and intermittent dizziness. Denies any fever, chills, nausea, vomiting, cough, congestion. States half the people he was round this weekend have had similar symptoms and been diagnosed with the flu. Patient also states it feels like the start of the last time he had strep. Has taken DayQuil this morning. Related Data Home Medications ?Medication ?Instructions ?Recorded ?Confirmed ?Last Taken ?Type No Home Medications 03/25/24 03/25/24 Unknown History Allergies Allergy/AdvReac Type Severity Reaction Status Date / Time No Known Allergies Allergy Verified 01/01/25 16:04 Review of Systems Review of Systems: All systems reviewed & are unremarkable except as noted in HPI and below Constitutional: Constitutional: Denies chills, Reports fatigue, Denies fever(s), Reports headache(s), Denies malaise and Denies weakness Eyes: Eyes: Denies blurry vision, Denies itchy eyes and Denies loss of vision ENT: Denies otalgia, Reports headache(s), Denies nasal congestion, Denies sinus pain and Reports sore throat Cardiovascular: Cardiovascular: Denies chest pain, Denies irregular heart rhythm and Denies dyspnea Respiratory: Respiratory: Denies cough and Denies dyspnea Gastrointestinal: Gastrointestinal: Denies abdominal pain, Reports diarrhea, Denies nausea and Denies vomiting Musculoskeletal: Musculoskeletal: Denies back pain, Denies myalgias and Denies arthralgias Integumentary/Breasts: Skin/Breast: Denies pruritus and Denies rash Neurologic: Reports dizziness, Reports headache(s), Denies loss of vision and Denies weakness Psychiatric: Psychiatric: Reports no additional psychiatric complaints Endocrine: Endocrine: Denies fatigue Allergic/Immunologic: Allergic/Immunologic: Denies itchy eyes PMFSH Past Medical History Medical History No active medical problems Family History Family History Mother Hypertension Grandparent Hypertension Cerebrovascular accident Grandparent Cerebrovascular accident Social History Social History Smoking status: Never smoker Alcohol intake: current Substance use type: does not use Do You Feel Safe in your Home?: Yes Lack of Transportation: No Lack of Food: Never True Current Housing: I Have Housing Concerned About Future Housing: No Difficulty Paying Gas/Electric Bills: No Difficulty Paying for Meds: No Currently Unemployed: No Education: Bachelor's Degree Difficulty w/ Childcare or Family Care: No Living arrangements: with family Occupation/Education: occupation 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 There is no relevant family history pertinent to the presenting complaint. Exam Const: General: cooperative, healthy appearing, comfortable, no acute distress and well nourished Nutritional Appearance: well nourished Orientation/consciousness: patient oriented x3 Limitations: no limitations HENMT: Head: normal to inspection, normocephalic and atraumatic Ears: hearing grossly normal bilaterally, external ears normal, TM's normal bilaterally, EAC's normal and no periauricular adenopathy Face/Nose/Sinus: Normal external nose present, Abnormal mucous membranes and turbinates present erythematous bilateral and diffuse, normal facial exam, sinuses nontender and face symmetric Face and sinus: normal facial exam, sinuses nontender and face symmetric Mouth: Yes Normal oral and palatal mucosa present, Yes lip normal, Yes tongue normal, Yes Normal salivary glands and ducts present, Yes oropharynx normal and Yes moist mucous membranes Teeth and gingiva: dentition normal Throat: posterior oropharynx normal, tonsils normal, uvula midline and postnasal drainage Eyes: General: appearance normal, both eyes and all related structures Alignment and Position: alignment normal and position normal Periorbital: periorbital findings normal Eyelids: eyelids normal Pupils: Equal, round and reactive pupils present Neck: Neck: normal visual inspection, full ROM, no lymphadenopathy and supple Chest: Chest palpation & inspection: normal inspection of the chest and normal palpation of entire chest wall Resp: Effort & Inspection: normal respiratory effort and able to speak in complete sentences Auscultation: clear to auscultation bilaterally, no crackles, no rales, no rhonchi and no wheezes Cardio: Rate: regular rate Rhythm: regular rhythm Heart sounds: S1 normal heart sound present and S2 normal heart sound present GI: Inspection: normal to inspection Skin: General skin exam: normal color and no rashes or lesions noted Neuro: General: patient oriented x3 and moves all extremities Cranial nerves: Yes Equal, round and reactive pupils present Speech: normal speech Gait exam (Neuro): Normal gait present Extrem: General: normal to inspection, full ROM and no edema Psych: Appearance: grossly normal and well kempt Mental Status: mental status grossly normal Speech and movement: Normal speech and movement present Affect: normal affect Attitude: cooperative Thought process: Normal thought process present Course Course Emergency Course: Discharge instructions reviewed with patient, as well as provided in writing per nursing staff. The instructions also include specific and strict return/GO TO THE ER as well as f/u information. All questions have been answered, and the patient deny any further questions with discharge and discharge plan. Portions of this record may have been created with voice recognition software Level of Care: Express Care Visit Vital Signs Vital signs: Vital Signs Temperature 36.8 C 01/01/25 16:01 Pulse Rate 74 01/01/25 16:01 Respiratory Rate 18 01/01/25 16:01 Blood Pressure 132/80 01/01/25 16:01 Pulse Oximetry 100 01/01/25 16:01 Oxygen Delivery Room Air 01/01/25 16:01 Temperature 36.8 C 01/01/25 16:01 Pulse Rate 74 01/01/25 16:01 Respiratory Rate 18 01/01/25 16:01 Blood Pressure 132/80 01/01/25 16:01 Pulse Oximetry 100 01/01/25 16:01 Oxygen Delivery Room Air 01/01/25 16:01 Reviewed MDM - URI/Sore Throat MDM Narrative Medical decision making narrative: Pt well hydrated appearing, in no respiratory distress, hemodynamically stable. Recommend supportive care. The patient is stable at time of discharge the clinical impression was discussed and the patient was given the opportunity to ask questions, which were addressed as completely as possible given the information available at present. Anticipatory guidance and return to care precautions were discussed and the importance of primary care follow-up was stressed and encouraged. The patient voiced understanding of the plan, indications to return, and the need for follow-up. Differential diagnosis considered: Cai virus, strep pharyngitis, allergic rhinitis, upper respiratory tract infection, sinusitis, rhinosinusitis, nasopharyngitis. viral pharyngitis, otitis media, otitis externa, otitis effusion, foreign body, cerumen impaction, viral syndrome, and influenza.? Exam findings show no acute concerns or changes; patient is non-toxic appearing and is in no distress.? Patient is appropriate for outpatient treatment and follow-up.? Medical Records Attestation: I reviewed the patient's medical records. Lab Data Attestation: I reviewed the patient's lab results. Labs: Lab Results 01/01/25 Range/Units 16:27 POC Influenza A Ag Negative (Negative) POC Influenza B Ag Negative (Negative) POC SARS CoV-2 Ag Negative (Negative) POC Grp A Strep Screen Negative (Negative) Discharge Plan Discharge Clinical Impression: Upper respiratory infection Qualifiers: URI type: unspecified viral URI Qualified Code(s): J06.9 - Acute upper respiratory infection, unspecified Patient Disposition: Home, Self-Care Condition: Stable Instructions: Upper Respiratory Infection (ED) Additional Instructions: Your rapid strep swab was negative today at [facility]. A throat culture will be sent to the laboratory for further testing. If the test is positive, you will receive a phone call within 48 hours and an appropriate antibiotic will be initiated at that time. Your Covid and flu are both negative Your symptoms are likely due to a viral illness, which is not treated with antibiotics. Viral symptoms can be present for up to a few weeks. -For pain/fever, you may take: Tylenol 650-1000mg by mouth every 4-6 hours. Do not exceed 4000mg in 24 hours. Advil (Ibuprofen) 600 mg by mouth every 6 hours. Do not exceed 2400mg in 24 hours. 8 AM: Tylenol 11 AM: Ibuprofen 2 PM: Tylenol 5 PM: Ibuprofen 8 PM: Tylenol 11 PM: Ibuprofen 2 AM: Tylenol 5 AM: Ibuprofen -Antihistamine medication such as Benadryl/Zyrtec at night and Claritin/Mirella during the day can help improve symptoms. -Use Flonase twice a day for 5 days then daily to help reduce the inflammation and dry up your sinuses. -You can also use Sudafed behind the pharmacy counter(12 or 24 hour). Be sure to drink plenty of water with these medications at least 8 ounces with every dose and it is important to drink 8 to 10 glasses of water per day. Water is a natural decongestant -Eat and drink things that are easy to swallow, like tea or soup, or popsicles. -Oral rinses such as: Salt water gargles and/or may use topical anesthetic (eg. Chloraseptic spray) or lozenges to relieve dryness or throat pain). -Frequent hand washing or hand superintendent pressure is one of the best ways to prevent spread of infection. -Using a vaporizer or humidifier at night will also help thin secretions and help with coughing up phlegm. -Follow up with primary care provider in 3-5 days if condition is not improving - For new or worsening symptoms go directly to the nearest ER Patient Language: Urdu Prescriptions: No Action No Home Medications Follow-up/Referrals: Woody,Cain Qureshi Jr., MD [Primary Care Provider] - 3 Days Stand Alone Forms: Work/School Release IP Time of Disposition: 16:28
[2025-01-01 16:01] VITALS: BP 132/80; PULSE 74; RESP 18; TEMP 36.8; O2SAT 100
[2025-01-01 16:29] LABS: EDCOVIDSCREEN Negative (Negative); EDINFLUASCREEN Negative (Negative); EDINFLUBSCREEN Negative (Negative); EDSTREPNEGPOS1 Negative (Negative)
== END 2025-01-01 16:33 | disposition home or self-care (01) ==
PROVIDERS: Emergency Provider Nurse Practitioner Family; PCP Hospitalist
DX: J06.9 Acute upper respiratory infection, unspecified (principal); Z20.822 Contact with and (suspected) exposure to COVID-19
CPT/HCPCS: 87081; 87426; 87804; 87880; 99213; G0463

== ENCOUNTER 2025-06-13 17:48 | Emergency (ER) | payer OTHER, SELFPAY ==
--- NOTE | ~2025-06-13 | XR_ITS ---
Right Shoulder Technique: AP and scapular Y views were obtained. Clinical History: Pain Findings: Suggestion of small mineralization at the medial aspect of the proximal humeral metaphyseal region.. The glenohumeral and acromioclavicular joint spaces are preserved. Soft tissues are unremar kable. Impression: Small mineralization present medially at the surgical neck region of the humerus. Small avulsion frac ture is not completely excluded. Consider CT/MR to further evaluate for underlying injury, as indicat ed. Reviewed, dictated and finalized at location M. Impression: Small mineralization present medially at the surgical neck region of the humeru s. Small avulsion fracture is not completely excluded. Consider CT/MR to furthe r evaluate for underlying injury, as indicated.
--- OUTSIDE RECORDS SUMMARY | 2025-06-13 17:56 | XMS_ITS | Referral Summary ---
Author Organization [facility] Address [address] [place] [address] Care Team Providers Care Locksmith Apprentice Name Role Phone Woody Felix MD, Cain [...] 12/17/2023 Assessment & Plan (12/30/2024 3:35 PM HUMAN INTELLIGENCE): Reviewed labs, screenings and vaccines Assessment & Plan (12/17/2023 9:01 AM HUMAN INTELLIGENCE): Reviewed labs, screenings and vaccines Primary insomnia 12/17/2023 Assessment & Plan (12/17/2023 9:10 AM HUMAN INTELLIGENCE): He think if he could turn off the brain at night to sleep it would help Discussed options and he agreed he did not want to do anythign like ambien etc Discussed trazodone, risk./benefits He can take up to 100 mg prn Overweight with body mass in dex (BMI) of 29 to 29.9 in adult 06/16/2019 Assessment & Plan (12/17/2023 9:10 AM HUMAN INTELLIGENCE): Will monitor weight Internal derangement of right knee 12/25/2018 Mononeuropathy 07/22/2018 Immunizations Immunization Administration Dates Next Due DTaP, Unspecified 09/12/1989, [...] staff should administer the PHQ-9) 2 12/30/2024 PHQ-9 Answer Date Recorded PHQ-9 Total Score 7 12/30/2024 Sex and Gender Information Value Date Recorded Sex Assigned at Not on file Legal Sex Male 8:40 PM HUMAN INTELLIGENCE Gender Identity Not on file Sexual Orientation Not on file Last Filed Vital Signs Vital Sign Reading Time Taken Comments Blood Pressure 100/60 12/30/2024 2:59 PM HUMAN INTELLIGENCE Pulse 79 12/30/2024 2:59 PM HUMAN INTELLIGENCE Temperature 36.6 C (97.8 F) 12/30/2024 2:59 PM HUMAN INTELLIGENCE Respiratory Rate 18 12/17/2023 8:37 AM HUMAN INTELLIGENCE Oxygen Saturation 98% 12/30/2024 2:59 PM HUMAN INTELLIGENCE Inhaled Oxygen Concentration - - Weight 104.8 kg (231 lb) 12/30/2024 2:59 PM HUMAN INTELLIGENCE Height 188 cm (6' 2.02) 12/30/2024 2:59 PM HUMAN INTELLIGENCE Body Mass Index 29.65 12/30/2024 2:59 PM HUMAN INTELLIGENCE Plan of Treatment Not on file Insurance [facility] CLAIM[facility] Care Teams Locksmith Apprentice Relationship Specialty Start Date End Date Cain Mckay Jr., MD [address] [place] [id number] PCP - General Internal Medicine 03/07/21
--- OUTSIDE RECORDS SUMMARY | 2025-06-13 17:56 | XMS_ITS | Clinical Summary ---
Author Organization [facility] Address [address] [place] [address] Care Team Providers Care Airport Duty Manager Name Role Phone Woody Felix MD, Cain [...] 12/17/2023 Assessment & Plan (12/30/2024 3:35 PM ACQUISITION ADVISOR): Reviewed labs, screenings and vaccines Assessment & Plan (12/17/2023 9:01 AM ACQUISITION ADVISOR): Reviewed labs, screenings and vaccines Primary insomnia 12/17/2023 Assessment & Plan (12/17/2023 9:10 AM ACQUISITION ADVISOR): He think if he could turn off the brain at night to sleep it would help Discussed options and he agreed he did not want to do anythign like ambien etc Discussed trazodone, risk./benefits He can take up to 100 mg prn Overweight with body mass in dex (BMI) of 29 to 29.9 in adult 06/16/2019 Assessment & Plan (12/17/2023 9:10 AM ACQUISITION ADVISOR): Will monitor weight Internal derangement of right [...] on file Legal Sex Male 8:40 PM ACQUISITION ADVISOR Gender Identity Not on file Sexual Orientation Not on file Obstetrics History Last Filed Vital Signs Vital Sign Reading Time Taken Comments Blood Pressure 100/60 12/30/2024 2:59 PM ACQUISITION ADVISOR Pulse 79 12/30/2024 2:59 PM ACQUISITION ADVISOR Temperature 36.6 C (97.8 F) 12/30/2024 2:59 PM ACQUISITION ADVISOR Respiratory Rate 18 12/17/2023 8:37 AM ACQUISITION ADVISOR Oxygen Saturation 98% 12/30/2024 2:59 PM ACQUISITION ADVISOR Inhaled Oxygen Concentration - - Weight 104.8 kg (231 lb) 12/30/2024 2:59 PM ACQUISITION ADVISOR Height 188 cm (6' 2.02) 12/30/2024 2:59 PM ACQUISITION ADVISOR Body Mass Index 29.65 12/30/2024 2:59 PM ACQUISITION ADVISOR Plan of Treatment Health Maintenance Due Date Last Done Comments Hepatitis C Screening 1984 Covid-19 Vaccine ( season) 2024 03/10/2021, 02/17/2021 Influenza Vaccine (#1) 2025 , 09/22/2023, 07/07/2022, Additional history exists Depression Screening 12/30/2025 12/30/2024, 12/30/2024, 01/23/2024, Additional history exists Regular Well Visit/Exam 18-64 12/30/2025 12/30/2024, 12/17/2023 DTaP/Tdap/Td Vaccine (8 - Td or Tdap) 02/01/2026 02/02/2016, 10/18/2007, 03/15/1999, Additional history exists Hepatitis B Screening Completed 03/17/2008 , 10/18/2007, 09/18/2007, Additional history exists HPV Vaccines Aged Out No longer eligi ble based on patient's age to complete this topic Pneumococcal vaccine <65 Aged Out No longer eligible based on patient's age to complete this topic Varicella Vaccines Discontinued Insurance [facility] CLAIMS Care Teams Airport Duty Manager Relationship Specialty Start Date End Date Cain Mckay Jr., MD [address] [place] [id number] PCP - General Internal Medicine 03/07/21
--- OUTSIDE RECORDS SUMMARY | 2025-06-13 17:56 | XMS_ITS | Clinical Summary ---
Author Organization [facility] Address [address] [place] [address] Care Team Providers Care Assistant Women'S Tennis Coach Name Role Phone None, Physician Primary Care Provider Unavailabl e Source Comments [facility],non-owned Affiliates and Associated Physician Practices is amultiple site organization consisting of ambulatory clinics and hospital sitesin [place], [place], [place] and [place]. This disclosure is being madepursuant to the Care Everywhere program and may not contain all information available regarding this patient. Last updated 18.[facility] Allergies No known active allergies Medications * Be aware that medications may not be up to date on this document. Alwaysverify current medications with the patient. acetaminophen (Tylenol) 325 MG tablet Take 1 (one) tablet by mouth as needed 05/30/2023 Active ibuprofen (Motrin) 800 MG tablet Take 1 (one) tablet by mouth as needed 05/30/2023 Active ofloxacin (Floxin) 0.3 % otic solution Instill 5 (five) drops into right ear 3 times daily 07/04/2023 Active fluticasone propionate (Flonase) 50 MCG/ACT nasal spray [place] 2 (two) sprays into each nostril once daily 48 g 4 11/28/2023 Active Active Problems No known active problems Immunizations Immunization Administration Dates Next Due INFLUENZA VACCINE, TRIV. (AF LURIA, FLUZONE TRIVALENT; 6MO+) (IIV3) 08/26/2014,10/26/2011 DTAP, HISTORIC VACCINE 09/12/1989,1985,04/16/1985,1984,1984 FLU VACCINE TRI IIV3 SPLIT P F IM (FLUVIRIN) 09/13/2017,09/23/2016,09/08/2014 HEP A/HEP B 03/17/2008,10/18/2007,09/18/2007 HEP B VACCINE 11/04/1997,06/03/1997,05/01/1997 INFLUENZA A [id number] VACCINE 11/30/2009 INFLUENZA VACCINE 10/17/2018, 2,08/09/2010,2008,09/18/2007 INFLUENZA [...] at Not on file Legal Sex Male 1:06 PM FILM FLAT INSPECTOR Gender Identity Not on file Sexual Orientation Not on file Last Filed Vital Signs Vital Sign Reading Time Taken Comments Blood Pressure 125/80 11/28/2023 1:08 PM FILM FLAT INSPECTOR Pulse 76 11/28/2023 1:08 PM FILM FLAT INSPECTOR Temperature - - Respiratory Rate - - Oxygen Saturation - - Inhaled Oxygen Concentration - - Weight 106.1 kg (234 lb) 11/28/2023 1:08 PM FILM FLAT INSPECTOR Height 188 cm (6' 2) 11/28/2023 1:08 PM FILM FLAT INSPECTOR Body Mass Index 30.04 11/28/2023 1:08 PM FILM FLAT INSPECTOR Plan of Treatment Health Maintenance Due Date Last Done Comments LIPID TESTING 1984 HIV SCREENING 1999 HEPATITIS C SCREENING 09/21/2002 HPV VACCINE (1 - 3-dose SCDM series) 2011 COVID-19 VACCINE ( - season) 2024 03/10/2021, 02/17/2021 DEPRESSION SCREENING 11/26/2024 INFLUENZA VACCINE (#1) 2025 , 2020, 11/16/2019, Additional history exists DTAP/TDAP/TD VACCINES (10 - Td or Tdap) 02/01/2026 02/02/2016, 02/02/2016, 10/18/2007, Additional history exists ZOSTER VACCINE (1 of 2) 2034 MENINGOCOCCAL GROUPS A/C/Y/W VACCINE Aged Out 09/18/2007 No longer eligible based on patient's age to complete this topic HEPATITIS B VACCINE Completed 03/17/2008, 10/18/2007, 09/18/2007, Additional history exists HIB VACCINE Aged Out No longer eligi ble based on patient's age to complete this topic MENINGOCOCCAL (Group B) VACCINE SHARED DECISION-MAKING Aged Out No longer eligible based on patient's age to complete this topic PNEUMOCOCCAL VACCINE Aged Out No long er eligible based on patient's age to complete this topic Insurance Care Teams Assistant Women'S Tennis Coach Relationship Specialty Start Date End Date None, Physician [address] [place] [address] PCP - General 11/08/23
--- OUTSIDE RECORDS SUMMARY | 2025-06-13 17:56 | XMS_ITS | Patient Health Record ---
Author Organization Formerly [facility], Later [facility] [employer] ([address]) Address [address] [place] [address] Care Team Providers Care Corporate Training Manager Name Role Phone Rubendenisse Cain Primary Care Provider Unavailab kristen Rodolfo Gutierrezquelyn Unavailable [phone] Allergies No Known Allergies Results Component Value Reference Range Notes Spirometry Reviewed date: Interpretation:Normal Performing Lab: Notes/Report: Normal SpiroPreBronchodilator_FVC 5.89 SpiroPostBronchodilator_FEF25_75 0 SpiroPreBronchodilator_FEF25_75 5.89 SpiroPreBronchodilator_FEV1 4.97 SpiroPrecentPredictionPost_FEF25_75 0 SpiroPrecentPredictionPost_FEV1 0 SpiroPrecentPredictionPost_FEV1_OVER_FVC 0 SpiroPrecentPredictionPost_FVC 0 SpiroPrecentPredictionPre_FEF25_75 133.9 SpiroPrecentPredictionPre_FEV1 110.2 SpiroPrecentPredictionPre_FEV1_OVER_FVC 105 SpiroPrecentPredictionPre_FVC 104.8 SpiroPredicted_FEF25_75 4.4 SpiroPreBronchodilator_FEV1_OVER_FVC 84.35 SpiroPreBronchodilator_PEF 9.3 SpiroPostBronchodilator_FVC 0 SpiroPostBronchodilator_FEV1 0 SpiroPostBronchodilator_FEV1_OVER_FVC 0 SpiroPostBronchodilator_PEF 0 SpiroPredicted_FVC 5.62 SpiroPredicted_FEV1 4.51 SpiroPredicted_FEV1_OVER_FVC 80.31 SpiroPredicted_PEF 10.04 Reason For Referral No Information Medications Medication SIG (Take, Route, Frequency, Duration) Notes Start Date End Date Status EPINEPHrine 0.3 MG/0.3ML as directed Inj ection as needed; Duration: 30 days 03/10/2025 Active Azelastine HCl 137 MCG/SPRAY 2 sprays in each nostril Nasally Twice a day; Duration: 30 days 03/10/2025 Active Fluticasone Propionate 50 MCG/ACT 2 sprays in each nostril Nasally Twice a day; Duration: 30 days 03/10/2025 Active Levocetirizine Dihydrochloride 5 MG 1 tablet in the evening Orally Once a day; Duration: 30 days 03/10/2025 Active Social History Tobacco Use: Social History Observation Description Date Details (start date - stop date) Never Smoker NA - NA Sex Assigned At : Social History Observation Description Sex Assigned At Male Tobacco Control (Standard) Question Answer Notes Tobacco use: Nonsmoker AUDIT-C (Standard) Question Answer Notes Did you have a drink containing alcohol in the p ast year? No Points 0 Interpretation Negative Section Notes: works with insurance Problems Problem Type SNOMED Code ICD Code Onset Dates Problem Status W/U Status Risk Notes Problem Other chronic allergic conjunctivitis (H10.45) Active confirmed Problem Allergic rhinitis caused by pollen (disorder) (99563489) Allergic rhinitis due to pollen (J30.1) Active confirmed Problem Allergic rhinitis (41085781) Other allergic rhinitis (J30.89) Active confirmed Problem Allergic rhinitis caused by animal hair and dander ([id number]) Allergic rhinitis due to animal (cat) (dog) hair and dander (J30.81) Active confirmed Vital Signs Blood pressure diastolic 79 mm Hg 03/10/2025 Oximetry 99 % 03/10/2025 Height 73 in 03/10/2025 Blood pressure systolic 118 mm Hg 03/10/2025 Weight 230.8 lbs 03/10/2025 BMI 30.45 kg/m2 03/10/2025 Encounters Encounter Location Date Provider Diagnosis [facility] [address] [facility] [address] [place] [phone] 03/10/2025 Kristen Gutierrez Allergic rhinitis du e to pollen J30.1 ; Allergic urticaria L50.0 ; Wheezing R06.2 ; Allergic rhinitis due to animal (cat) (dog) hair and dander J30.81 ; Other allergic rhinitis J30.89 and Other chronic allergic conjunctivitis H10.45 [facility] [address] [place] [phone] 04/09/2025 Kristen Brenda Allergic rhinitis du e to pollen J30.1 ; Other allergic rhinitis J30.89 ; Allergic rhinitis due to animal (cat) (dog) hair and dander J30.81 and Other chronic allergic conjunctivitis H10.45 [facility] [address] [place] [address] [facility] [address] [phone] 04/15/2025 Kristen Brenda Allergic rhinitis du e to pollen J30.1 ; Other allergic rhinitis J30.89 ; Allergic rhinitis due to animal (cat) (dog) hair and dander J30.81 and Other chronic allergic conjunctivitis H10.45 [facility] [address] [place] [phone] 04/22/2025 Kristen Brenda Allergic rhinitis du e to pollen J30.1 ; Other allergic rhinitis J30.89 ; Allergic rhinitis due to animal (cat) (dog) hair and dander J30.81 and Other chronic allergic conjunctivitis H10.45 [facility] [address] [place] [address] [facility] [address] [phone] 04/30/2025 Kristen Brenda Allergic rhinitis du e to pollen J30.1 ; Other allergic rhinitis J30.89 ; Allergic rhinitis due to animal (cat) (dog) hair and dander J30.81 and Other chronic allergic conjunctivitis H10.45 [facility] [address] [place] [address] [facility] [address] [phone] 05/07/2025 Kristen Brenda Allergic rhinitis du e to pollen J30.1 ; Other allergic rhinitis J30.89 ; Allergic rhinitis due to animal (cat) (dog) hair and dander J30.81 and Other chronic allergic conjunctivitis H10.45 [facility] [address] [place] [address] [address] [phone] 05/14/2025 Kristen Brenda Allergic rhinitis du e to pollen J30.1 ; Other allergic rhinitis J30.89 ; Allergic rhinitis due to animal (cat) (dog) hair and dander J30.81 and Other chronic allergic conjunctivitis H10.[address] [phone] 05/28/2025 Kristen Gutierrez Allergic rhinitis du e to pollen J30.1 ; Other allergic rhinitis J30.89 ; Allergic rhinitis due to animal (cat) (dog) hair and dander J30.81 and Other chronic allergic conjunctivitis H10.[address] [phone] 06/04/2025 Kristen Gutierrez Allergic rhinitis du e to pollen J30.1 ; Other allergic rhinitis J30.89 ; Allergic rhinitis due to animal (cat) (dog) hair and dander J30.81 and Other chronic allergic conjunctivitis H10.[address] [address] 06/08/2025 Kristen Gutierrez Allergic rhinitis du e to pollen J30.1 ; Other allergic rhinitis J30.89 ; Allergic rhinitis due to animal (cat) (dog) hair and dander J30.81 and Other chronic allergic conjunctivitis H10.[address] [address] 03/10/2025 Kristen Gutierrez Assessments Encounter Date Diagnosis (ICD Code) Assessment Notes Treatment Notes Treatment Clinical Notes Section Notes 03/10/2025 Allergic rhinitis due to pollen (ICD-10 - J30.1) Given the history and symptoms, skin testing was performed to common aeroallergens to determine atopic status. Andrea clearly suffers from atopic disease based upon our skin testing and clinical history. Accordingly, we have introduced a new, aggressive medication regimen, discussed nasal washes and allergy-specific avoidance measures. We also discussed adjunctive therapies including subcutaneous, specific allergen immunotherapy as relates to the treatment and prevention of atopic disease. He is currently considering the risks, benefits and alternatives to this care. Risks: bleeding, infection, allergic reaction, anaphylaxis; Benefits: reduced need for medications, improved symptoms, disease modification. Alternatives: watch/wait, change medication regimen, improve allergy avoidance measures. Follow-up in 1 month for interval evaluation and management 03/10/2025 Allergic urticaria (ICD-10 - L50.0) hives secondary to grass and pollen outside. Monitor for improvement as he starts immunotherapy. 04/09/2025 Allergic rhinitis due to pollen (ICD-10 - J30.1) 04/09/2025 Other allergic rhinitis (ICD-10 - J30.89) 04/15/2025 Allergic rhinitis due to pollen (ICD-10 - J30.1) 04/15/2025 Other allergic rhinitis (ICD-10 - J30.89) 04/22/2025 Allergic rhinitis due to pollen (ICD-10 - J30.1) 04/22/2025 Other allergic rhinitis (ICD-10 - J30.89) 04/30/2025 Allergic rhinitis due to pollen (ICD-10 - J30.1) 04/30/2025 Other allergic rhinitis (ICD-10 - J30.89) 05/07/2025 Allergic rhinitis due to pollen (ICD-10 - J30.1) 05/07/2025 Other allergic rhinitis (ICD-10 - J30.89) 05/14/2025 Allergic rhinitis due to pollen (ICD-10 - J30.1) 05/14/2025 Other allergic rhinitis (ICD-10 - J30.89) 05/28/2025 Allergic rhinitis due to pollen (ICD-10 - J30.1) 05/28/2025 Other allergic rhinitis (ICD-10 - J30.89) 06/04/2025 Allergic rhinitis due to pollen (ICD-10 - J30.1) 06/04/2025 Other allergic rhinitis (ICD-10 - J30.89) 06/08/2025 Allergic rhinitis due to pollen (ICD-10 - J30.1) 06/08/2025 Other allergic rhinitis (ICD-10 - J30.89) 06/08/2025 Allergic rhinitis due to animal (cat) (dog) hair and dander (ICD-10 - J30.81) 06/04/2025 Allergic rhinitis due to animal (cat) (dog) hair and dander (ICD-10 - J30.81) 05/28/2025 Allergic rhinitis due to animal (cat) (dog) hair and dander (ICD-10 - J30.81) 05/14/2025 Allergic rhinitis due to animal (cat) (dog) hair and dander (ICD-10 - J30.81) 05/07/2025 Allergic rhinitis due to animal (cat) (dog) hair and dander (ICD-10 - J30.81) 04/30/2025 Allergic rhinitis due to animal (cat) (dog) hair and dander (ICD-10 - J30.81) 04/22/2025 Allergic rhinitis due to animal (cat) (dog) hair and dander (ICD-10 - J30.81) 04/15/2025 Allergic rhinitis due to animal (cat) (dog) hair and dander (ICD-10 - J30.81) 04/09/2025 Allergic rhinitis due to animal (cat) (dog) hair and dander (ICD-10 - J30.81) 03/10/2025 Wheezing (ICD-10 - R06.2) Spirometry today is normal. We discussed starting albuterol, but he would like to avoid at this time. 04/09/2025 Other chronic allergic conjunctivitis (ICD-10 - H10.45) 03/10/2025 Allergic rhinitis due to animal (cat) (dog) hair and dander (ICD-10 - J30.81) Follow allergen avoidance, meds and consider SCIT as an adjunctive treatment to current regimen 04/15/2025 Other chronic allergic conjunctivitis (ICD-10 - H10.45) 04/22/2025 Other chronic allergic conjunctivitis (ICD-10 - H10.45) 04/30/2025 Other chronic allergic conjunctivitis (ICD-10 - H10.45) 05/07/2025 Other chronic allergic conjunctivitis (ICD-10 - H10.45) 05/14/2025 Other chronic allergic conjunctivitis (ICD-10 - H10.45) 05/28/2025 Other chronic allergic conjunctivitis (ICD-10 - H10.45) 06/04/2025 Other chronic allergic conjunctivitis (ICD-10 - H10.45) 06/08/2025 Other chronic allergic conjunctivitis (ICD-10 - H10.45) 03/10/2025 Other allergic rhinitis (ICD-10 - J30.89) Follow allergen avoidance, meds and consider SCIT as an adjunctive treatment to current regimen 03/10/2025 Other chronic allergic conjunctivitis (ICD-10 - H10.45) Given ocular signs and symptoms I encouraged allergy avoidance measures and meds as above. If symptoms persist, consider adding additional medications including intraocular antihistamine/mas t cell stabilizer, PRN and consider SCIT as an adjunctive measure Plan Of Treatment No Information Insurance Providers Payer Name Payer Address Payer Phone Subscriber Number Group Number Insured Name Patient Relationship to Insured Coverage Start Date Coverage End Date [facility] [address] [place] [phone] [id number] Andrea Smith Child - Insured has Financial Responsibility Medical (General) History Medical History History ICD Code Allergic rhinitis due to pollen J30.1
[2025-06-13 18:01] VITALS: BP 128/79; PULSE 88; RESP 18; TEMP 37.2; O2SAT 99
--- NOTE | 2025-06-13 18:04 | ED.UPPEXIN ---
HPI - Extremity Injury (Upper) General Chief Complaint: Extremity Injury, Upper Stated Complaint: rt shoulder pain Time Seen by Provider: 06/13/25 18:10 Source: patient Mode of arrival: ambulatory Limitations: no limitations History of Present Illness HPI narrative: Andrea is a 39-year-old male patient presenting to the clinic today with complaints of right shoulder pain/injury. He was playing kickball about an hour ago and fell with out stretches arm to get the ball and injured his right shoulder. Is having pain to the lateral shoulder. Pain with movement with some numbness and tingling radiating down the forearm. No obvious deformity. Has not iced it or taken any medications for pain. Related Data Home Medications ?Medication ?Instructions ?Recorded ?Confirmed ?Last Taken ?Type levocetirizine 5 mg tablet mg 06/13/25 Unknown History Allergies Allergy/AdvReac Type Severity Reaction Status Date / Time No Known Allergies Allergy Verified 06/13/25 18:02 Review of Systems Review of Systems: Pertinent positives per HPI. Patient denies any fever, chills, rash, headache, visual changes, dizziness, cough, shortness of breath, chest pain, palpitations, nausea, vomiting, diarrhea, constipation, abdominal pain, or any urinary issues. [facility] Past Medical History Medical History No active medical problems Family History Family History Mother Hypertension Grandparent Hypertension Cerebrovascular accident Grandparent Cerebrovascular accident Social History Social History Smoking status: Never smoker Alcohol intake: current Substance use type: does not use Do You Feel Safe in your Home?: Yes Lack of Transportation: No Lack of Food: Never True Current Housing: I Have Housing Concerned About Future Housing: No Difficulty Paying Gas/Electric Bills: No Difficulty Paying for Meds: No Currently Unemployed: No Education: Bachelor's Degree Difficulty w/ Childcare or Family Care: No Living arrangements: with family Occupation/Education: occupation 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 There is no relevant family history pertinent to the patient complaint. Exam Narrative: General: Well-developed, well nourished, in no apparent distress Head: Normocephalic, atraumatic. Cardio: Regular rate and rhythm, s1 and s2 normal, no murmur appreciated. Resp: Clear to auscultation bilaterally, no rhonchi, rales, wheezing or rubs. Musculoskeletal: No deformity, tender to palpation over the right lateral shoulder, pain with posterior reach, raising arm above head, and cross arm, negative drop arm, empty can and full can test, pain to the lateral shoulder with giving a thumbs up to the thumbs down (supination to pronation), grossly normal range of motion, muscle strength strong and equal, peripheral pulse strong, no edema, no cyanosis, normal gait and station Course Course Emergency Course: Portions of this record may have been created with voice recognition software. Level of Care: Express Care Visit Vital Signs Vital signs: Vital Signs Temperature 37.2 C 06/13/25 18:01 Pulse Rate 88 06/13/25 18:01 Respiratory Rate 18 06/13/25 18:01 Blood Pressure 128/79 06/13/25 18:01 Pulse Oximetry 99 06/13/25 18:01 Oxygen Delivery Room Air 06/13/25 18:01 Temperature 37.2 C 06/13/25 18:01 Pulse Rate 88 06/13/25 18:01 Respiratory Rate 18 06/13/25 18:01 Blood Pressure 128/79 06/13/25 18:01 Pulse Oximetry 99 06/13/25 18:01 Oxygen Delivery Room Air 06/13/25 18:01 Vital signs reviewed MDM - Extremity Injury (Upper) MDM Narrative Medical decision making narrative: At the time of visit patient is resting comfortably on the exam table. Patient appears to be nontoxic. Patient dove to get a kickball and injured the right shoulder. Is reporting right lateral shoulder pain over the supraspinatus/proximal humerus., Patient is having pain with supination and pronation of the proximal humerus as well as pain with posterior reach, cross arm, and raising his arm above his head. Negative empty can, full can, and drop-arm test. No obvious dislocation/deformity. Strong radial pulse, hand grasp strong and equal bilaterally, X-ray of the right shoulder was ordered. Diagnostics: X-ray of the right shoulder was performed. X-ray shows a possible avulsion fracture of the proximal humerus-radiologist recommend CT or MRI for further evaluation. Plan: Patient has acute lateral shoulder pain with possible avulsion fracture to the right proximal humerus. Arm sling and ice pack was given. Will give patient follow-up for Ortho- Dr. Bryant. Call office on Sunday and schedule appointment. Work note was given for no use of the right arm until cleared by orthopedic provider. Supportive measures were discussed with the patient and they voiced understanding discharge instructions and agrees to treatment plan. Return precautions reviewed Differential Diagnosis Differential diagnosis: Likely dislocation of shoulder and other (AC joint separation, shoulder strain, rotator cuff injury, contusion, soft tissue injury) Imaging Data Radiologist's impression: ITS Impressions Shoulder X-Ray 06/13/25 18:18 Impression: Small mineralization present medially at the surgical neck region of the humerus. Small avulsion fracture is not completely excluded. Consider CT/MR to further evaluate for underlying injury, as indicated. Discharge Plan Discharge Clinical Impression: Acute shoulder pain Qualifiers: Laterality: right Qualified Code(s): M25.511 - Pain in right shoulder Patient Disposition: Home Condition: Stable Instructions: Antibiotic Form, Shoulder Pain (ED), Avulsion Fracture (ED) Additional Instructions: X-ray shows a possible avulsion fracture of the proximal humerus-recommend CT/MRI for further evaluation Rest, ice, elevate, and wear arm sling as directed Tylenol/motrin for pain as discussed. No use of the right arm until cleared by orthopedic provider No running or sports until healed. Follow up with your PCP if symptoms persist more than 1 week. Follow-up with Dr. Bryant- call office on Sunday to schedule an appointment. Patient Language: Surinamese Prescriptions: No Action levocetirizine 5 mg tablet Follow-up/Referrals: Woody,Cain Qureshi Jr., MD [Primary Care Provider] - Stand Alone Forms: Work/School Release IP Time of Disposition: 18:46 Quality NIHSS Nursing Documentation ED NIHSS nursing documentation: reviewed/agree
== END 2025-06-13 18:48 | disposition home or self-care (01) ==
PROVIDERS: Emergency Provider Nurse Practitioner Family; PCP Hospitalist
DX: M25.511 Pain in right shoulder (principal); W18.39XA Other fall on same level, initial encounter; Y93.6A Activity, physical games generally associated with school recess, summer camp and children
CPT/HCPCS: 73030; 99213; A4565; G0463